=== PATIENT | male | born 1980 | race Caucasian/White ===

== ENCOUNTER → 2019-08-10 | Outpatient (CLI) | payer OTHER ==
--- NOTE | 2019-08-10 19:06 | EXE ---
[facility] [address] [place] [address] STRESS ECHOCARDIOGRAM Name: BUCKY JACOB Room #: REG Shell#: [id number] Admission: 08/10/19 Attend Phys: Physician not on s Discharge: Date of : 82 Report #: [id number] THIS REPORT FOR: //name// APPROVED REPORT Study performed: 08/10/2019 10:02:16 Exam: Stress Echocardiogram Indication: Palpitations Patient Location: Out-Patient Stress Nurse: Dorita PALMA Room #: Echo lab 2 Status: routine Ht: 5 ft 10 in HR: 63 bpm BP: 132/78 mmHg Rhythm: NSR Medical History Medications: No cardiac medications Allergies: No known drug allergies Exercise History: Physically active Procedure The patient underwent an Exercise Stress Test using the Maciej Protocol. Blood pressure, heart rate, and EKG were monitored. An Echocardiogram was performed by photographic laboratory technician in four stages in quad fashion. At peak stress, four selected images were obtained and placed side by side with resting images for comparison. Stress Test Details Stress Test: Exercise stress testing was performed using a Maciej protocol. HR Resting HR: 63 bpm Max Heart Rate (APMHR): 182 bpm Max HR Achieved: 196 bpm Target HR (85% APMHR): 154 bpm % of APMHR: 107 Recovery HR: 93 bpm HR response to stress: Normal HR response to stress BP Resting BP: 132/78 mmHg Max BP: 170/84 mmHg Recovery BP: 130/74 mmHg BP response to stress: Normal blood pressure response to [facility] [address] [place] [address] STRESS ECHOCARDIOGRAM Name: JACOBBUCKY SUBRAMANIAN Room #: REG [facility].#: [id number] Admission: 08/10/19 Attend Phys: Physician not on s Discharge: Date of : 82 Report #: [id number] stress. ECG Clinical Reason for Termination: Maximal effort Exercise duration: 16 min 25 sec Highest Stage Achieved: Stage 6: 5.5 mph at 20% grade. Exercise capacity: 20.3 METs Overall Exercise Capacity for Age: Excellent Stress ECG Conclusion 1. Subjectively negative for ischemia 2. Electrocardiographically negative for ischemia 3. Satisfactory functional capacity Pre-Stress Echo The resting Echocardiogram showed normal left ventricular contractility with an estimated Ejection Fraction of about >55%. The resting echocardiogram demonstrated normal wall motion in all wall segments. Post-Stress Echo The stress Echocardiogram showed normal left ventricular contractility with an estimated Ejection Fraction of about >70%. Compared to rest, there were no stress-induced wall motion abnormalities. Conclusion Clinical Response: Non-ischemic Exercise Capacity: Superior Stress ECG Response: Non-ischemic Stress Echo Images: Non-ischemic 1. low risk study No prior study available for comparison. Other Information Study Quality: Good <Conclusion> 1. low risk study <ELECTRONICALLY SIGNED> By: Sourav Hyatt MD 08/10/191905 05 05 Sourav Hyatt MD /INF
== END ==
LOC: CV 09:01
DX: I49.3 Ventricular premature depolarization (principal)